=== PATIENT | female | born 1950 | race Caucasian/White ===

== ENCOUNTER → 2023-08-18 06:24 | Day surgery (SDC) | payer MEDICARE, SELFPAY | LOC: GI 06:24 | PROVIDERS: ATTENDING PHYSICIAN Surgery | DX: Z12.11 Encounter for screening for malignant neoplasm of colon (principal); Q43.8 Other specified congenital malformations of intestine; K57.30 Diverticulosis of large intestine without perforation or abscess without bleeding; A63.0 Anogenital (venereal) warts; Z86.010 Personal history of colon polyps | CPT/HCPCS: G0105 ==

== ENCOUNTER → 2023-10-15 10:14 | Outpatient (REF) | payer MEDICARE, SELFPAY | LOC: CLAB 10:14 | PROVIDERS: ATTENDING PHYSICIAN Surgery | DX: R85.610 Atypical squamous cells of undetermined significance on cytologic smear of anus (ASC-US) (principal) | CPT/HCPCS: 88305 ==

== ENCOUNTER → 2024-02-12 10:11 | Outpatient (REF) | payer MEDICARE, SELFPAY | LOC: RAD 10:11 | PROVIDERS: ATTENDING PHYSICIAN Urology; FAMILY PHYSICIAN Nurse Practitioner | DX: N32.81 Overactive bladder (principal); M62.89 Other specified disorders of muscle; N95.8 Other specified menopausal and perimenopausal disorders | CPT/HCPCS: 76770; 76856 ==